=== PATIENT | male | born 1960 | race Native Hawaiian/Other Pacific Islander ===

== ENCOUNTER → 2018-02-14 | Outpatient (CLI) | payer BC ==
[2018-02-14 12:55] LABS: BASO # 0.1 10^3/uL (0.0-0.2); BASO % 1.2 % (0.0-1.0); EOS # 0.1 10^3/uL (0.0-0.50); HEMATOCRIT 42.7 % (42.0-52.0); HEMOGLOBIN 14.8 g/dl (13.5-17.5); LYMPH # 0.8 10^3/uL (1.5-4.5); LYMPH % 14.9 % (24.0-44.0); MEAN CORPUSCULAR HEMOGLOBIN 35.7 pg (27.0-33.0); MEAN CORPUSCULAR HGB CONC 34.7 g/dl (32.0-36.5); MEAN CORPUSCULAR VOLUME 102.9 fl (80.0-96.0); MONO # 0.6 10^3/uL (0.0-0.8); MONO % 10.9 % (0.0-5.0); NEUTROPHILS # 3.6 10^3/uL (1.8-7.7); NEUTROPHILS % 71.8 % (36.0-66.0); PLATELET COUNT, AUTOMATED 240 10^3/uL (150-450); RED BLOOD COUNT 4.15 10^6/uL (4.30-6.10)
[2018-02-14 13:21] LABS: ALT/SGPT 42 U/L (12-78); BILIRUBIN,TOTAL 0.4 MG/DL (0.2-1.0); BLOOD UREA NITROGEN 18 MG/DL (7-18); CALCIUM LEVEL 8.8 MG/DL (8.5-10.1); CARBON DIOXIDE LEVEL 24 MEQ/L (21-32); CHLORIDE LEVEL 107 MEQ/L (98-107); CREATININE FOR GFR 0.94 MG/DL (0.70-1.30); ERYTHROCYTE SEDIMENTATION RATE 19 mm/hr (0-20); GLOMERULAR FILTRATION RATE > 60.0 (>56); GLUCOSE, FASTING 106 MG/DL (70-100); IMMUNOGLOBULIN A 174 MG/DL (70-400); SODIUM LEVEL 140 MEQ/L (136-145)
[2018-02-14 13:28] LABS: VITAMIN B12 LEVEL 874 PG/ML (247-911)
[2018-02-19 00:06] LABS: ANTI-PARIETAL CELL ANTIBODY 36.3 Units (0.0-20.0); INTRINSIC FACTOR ANTIBODY 0.9 AU/mL (0.0-1.1); TISSUE TRANSGLUTAMINASE IgA <2 U/mL (0-3)
[2018-02-20 14:10] LABS: CALPROTECTIN STOOL <16 ug/g (0-120); FATS NEUTRAL Normal (.); FATS TOTAL Normal (.)
== END ==
LOC: M LAB 12:11
PROVIDERS: ATTEND Internal Medicine Gastroenterology
DX: K50.018 Crohn's disease of small intestine with other complication (principal)

== ENCOUNTER 2018-04-12 08:55 | Day surgery (SDC) | payer BC ==
[~2018-04-12] VITALS: Ht 180.3 cm; Wt 104.8 kg
[~2018-04-12 08:55] MED LIST: AZAT50TA2 PO; DICY20TA11 PO; DIFI200T PO; FISH7.5C PO; GEMF600T5 PO; IMIT50TA PO; INDO25CA; NS 1,000 ML IV ONE; PRAM0.126 PO; QUDE1CAP; SITA50TAB PO; VERA24TASA; VITA100067 PO; VITA100072 PO; VITA100T20 PO
[2018-04-12] MEDS ORDERED: KETOROLAC 30 MG/ML VIAL (J1885) As Ordered ONE (10:27)
[2018-04-12] MEDS ORDERED: KETOROLAC 30 MG/ML VIAL (J1885) IV ONE (10:30)
[2018-04-12] MEDS ORDERED: PROPOFOL 200 MG/20 ML VIAL As Ordered ONE ×2 (11:04→11:11)
[2018-04-12] MEDS ORDERED: LIDOCAINE 2% INJ 100 MG/5 ML SDV (FOR ANES.) As Ordered ONE (11:04)
--- NOTE | 2018-04-12 11:29 | ROOR ---
Patient Name: Kem Stockton Procedure Date: 04/12/2018 10:44 AM Date of : 1960 Age: 58 Room: [facility] Gender: Male Note Status: Finalized Procedure: Upper GI endoscopy Indications: Crohn's disease Providers: Jose MICHEL MD Referring MD: CORIN ROSALES MD Requesting Provider: Medicines: Monitored Anesthesia Care Complications: No immediate complications. Procedure: Pre-Anesthesia Assessment: - The heart rate, respiratory rate, oxygen saturations, blood pressure, adequacy of pulmonary ventilation, and response to care were monitored throughout the procedure. The Endoscope was introduced through the mouth, and advanced to the third part of duodenum. The upper GI endoscopy was accomplished without difficulty. The patient tolerated the procedure well. Findings: Non-severe esophagitis was found at the gastroesophageal junction. Biopsies were taken with a cold forceps for histology. Minimal inflammation was found at the pylorus. Biopsies were taken with a cold forceps for histology. Mild inflammation was found in the first portion of the duodenum. Biopsies were taken with a cold forceps for histology. The exam was otherwise without abnormality. Impression: - Mild reflux esophagitis and variable Z line. Rule out Ramirez's esophagus. Biopsied. - Minimal antral gastritis. Biopsied. - Mild first portion duodenitis. Biopsied. - The examination was otherwise normal. (- Findings above are nonspecific and quite minimal overall. Biopsies to r/o IBD) Recommendation: - Await pathology results. - Return to my office in 1 month. Jose Michel MD Jose MICHEL MD 04/12/2018 11:28:47 AM This report has been signed electronically. Number of Addenda: 0 Note Initiated On: 04/12/2018 10:44 AM Estimated Blood Loss: Estimated blood loss: none.
--- NOTE | 2018-04-12 11:37 | ROOR ---
Patient Name: Kem Stockton Procedure Date: 04/12/2018 10:45 AM Date of : 1960 Age: 58 Room: [facility] Gender: Male Note Status: Finalized Procedure: Colonoscopy Indications: Clinically significant diarrhea of unexplained origin, Suspected Crohn's disease Providers: Jose IBARRA MD Referring MD: CORIN ROSALES MD Requesting Provider: Medicines: Monitored Anesthesia Care Complications: No immediate complications. Procedure: Pre-Anesthesia Assessment: - The heart rate, respiratory rate, oxygen saturations, blood pressure, adequacy of pulmonary ventilation, and response to care were monitored throughout the procedure. The Colonoscope was introduced through the anus and advanced to 15 cm into the ileum. The colonoscopy was performed without difficulty. The patient tolerated the procedure well. The quality of the bowel preparation was fair. Findings: The perianal and digital rectal examinations were normal. Mild sigmoid diverticulosis and small internal hemorrhoids. The exam was otherwise normal throughout the examined colon. The terminal ileum appeared normal. Biopsies were taken with a cold forceps in the rectum, in the sigmoid colon, in the descending colon, in the transverse colon, in the ascending colon and in the terminal ileum for histology. Impression: - Preparation of the colon was fair. - Mild sigmoid diverticulosis and small internal hemorrhoids. - Perianal exam is normal. - The colon is otherwise normal. - The examined portion (15 cm) of the ileum was normal. - Biopsies were taken with a cold forceps for histology in the rectum, in the sigmoid colon, in the descending colon, in the transverse colon, in the ascending colon and in the terminal ileum. (- I see no evidence of any inflammation or other mucosal abnormality in the entire colon and 15 cm into terminal ileum). Recommendation: - Return to endoscopist in 1 month. Jose Ibarra MD Jose IBARRA MD 04/12/2018 11:36:56 AM This report has been signed electronically. Number of Addenda: 0 Note Initiated On: 04/12/2018 10:45 AM Estimated Blood Loss: Estimated blood loss: none.
[2018-04-12 11:52] VITALS: BP 153/87
== END 2018-04-12 12:03 | disposition home or self-care (01) ==
LOC: M OPP 08:55
PROVIDERS: ATTEND Internal Medicine Gastroenterology
DX: K50.90 Crohn's disease, unspecified, without complications (principal); K21.0 Gastro-esophageal reflux disease with esophagitis; K29.70 Gastritis, unspecified, without bleeding; K29.80 Duodenitis without bleeding; R19.7 Diarrhea, unspecified; G47.30 Sleep apnea, unspecified; L40.52 Psoriatic arthritis mutilans; E11.9 Type 2 diabetes mellitus without complications; Z79.899 Other long term (current) drug therapy; Z88.8 Allergy status to other drugs, medicaments and biological substances; Z80.0 Family history of malignant neoplasm of digestive organs; F17.228 Nicotine dependence, chewing tobacco, with other nicotine-induced disorders
CPT/HCPCS: 43239; 45380; 88305; J1885

== ENCOUNTER → 2018-06-20 | Outpatient (CLI) | payer BC ==
[~2018-06-20] MED LIST changes: -NS 1,000 ML IV ONE; +VITA100018 PO; -VITA100072 PO; -VITA100T20 PO; +VITA100T51 PO
== END ==
LOC: M LAB 14:47
PROVIDERS: ATTEND Internal Medicine Gastroenterology
DX: K57.33 Diverticulitis of large intestine without perforation or abscess with bleeding (principal)

== ENCOUNTER → 2018-07-17 | Outpatient (REF) | payer BC | LOC: M LAB REF 15:38 | PROVIDERS: ATTEND Internal Medicine Gastroenterology | DX: Z53.9 Procedure and treatment not carried out, unspecified reason (principal); K59.00 Constipation, unspecified ==

== ENCOUNTER → 2018-07-17 | Outpatient (CLI) | payer BC ==
[2018-07-17 14:56] LABS: BASO # 0.1 10^3/uL (0.0-0.2); BASO % 1.3 % (0.0-1.0); EOS # 0.1 10^3/uL (0.0-0.50); EOS % 1.3 % (0.0-3.0); LYMPH % 18.9 % (24.0-44.0); MEAN CORPUSCULAR HEMOGLOBIN 34.3 pg (27.0-33.0); MEAN CORPUSCULAR HGB CONC 34.1 g/dl (32.0-36.5); MEAN CORPUSCULAR VOLUME 100.5 fl (80.0-96.0); MONO # 0.8 10^3/uL (0.0-0.8); MONO % 15.2 % (0.0-5.0); NEUTROPHILS # 3.3 10^3/uL (1.8-7.7); NEUTROPHILS % 63.1 % (36.0-66.0); PLATELET COUNT, AUTOMATED 217 10^3/uL (150-450); RED BLOOD COUNT 4.08 10^6/uL (4.30-6.10); WHITE BLOOD COUNT 5.3 10^3/uL (4.0-10.0)
[2018-07-17 15:19] LABS: ALBUMIN 3.8 GM/DL (3.2-5.2); ALT/SGPT 42 U/L (12-78); BILIRUBIN,TOTAL 0.3 MG/DL (0.2-1.0); BLOOD UREA NITROGEN 19 MG/DL (7-18); CALCIUM LEVEL 8.4 MG/DL (8.5-10.1); CARBON DIOXIDE LEVEL 25 MEQ/L (21-32); CHLORIDE LEVEL 109 MEQ/L (98-107); CREATININE FOR GFR 0.92 MG/DL (0.70-1.30); FREE T4 0.74 NG/DL (0.76-1.46); GLOMERULAR FILTRATION RATE > 60.0 (>56); GLUCOSE, FASTING 74 MG/DL (70-100); POTASSIUM SERUM 3.9 MEQ/L (3.5-5.1); SODIUM LEVEL 142 MEQ/L (136-145); TOTAL PROTEIN 6.9 GM/DL (6.4-8.2)
[2018-07-17 15:22] LABS: VITAMIN B12 LEVEL 869 PG/ML (247-911)
== END ==
LOC: M LAB 14:07
PROVIDERS: ATTEND Internal Medicine Gastroenterology
DX: K50.818 Crohn's disease of both small and large intestine with other complication (principal); K56.41 Fecal impaction

== ENCOUNTER 2019-01-31 13:19 | Day surgery (SDC) | payer BC ==
[~2019-01-31] VITALS: Ht 182.9 cm; Wt 105.2 kg
[~2019-01-31 13:19] MED LIST changes: +FECAL MICROBIOTA PREPARATION 250 ML BTL (J3590) XX ONE; +GABA-1171 PO; +GALC120S SQ; +INDO-16; -INDO25CA; +LIDOCAINE 2% INJ 100 MG/5 ML SDV (FOR ANES.) As Ordered ONE; +NS 1,000 ML IV SCH; +PROPOFOL 200 MG/20 ML VIAL As Ordered ONE; -VERA24TASA; +VERA24TASA PO
--- NOTE | 2019-01-31 15:17 | ROOR ---
Patient Name: Kem Stockton Procedure Date: 01/31/2019 2:39 PM Date of : 1960 Age: 58 Room: [facility] Gender: Male Note Status: Finalized Procedure: Colonoscopy Indications: Fecal transplant for treatment of recurrent Clostridium difficile diarrhea. (Pt with previous history of inflammatory bowel disease). Providers: Jose IBARRA MD Referring MD: CORIN ROSALES MD Requesting Provider: Medicines: Monitored Anesthesia Care Complications: No immediate complications. Procedure: Pre-Anesthesia Assessment: - The heart rate, respiratory rate, oxygen saturations, blood pressure, adequacy of pulmonary ventilation, and response to care were monitored throughout the procedure. The Colonoscope was introduced through the anus and advanced to the terminal ileum, with identification of the appendiceal orifice and IC valve. The colonoscopy was performed without difficulty. The patient tolerated the procedure well. The quality of the bowel preparation was adequate. Findings: The perianal and digital rectal examinations were normal. A localized area of erythematous mucosa was found in the mid rectum. This was biopsied with a cold forceps for histology. The decision was made to proceed with fecal microbiota transplant (bacteriotherapy). Donor stool was supplied by [facility] (purchased frozen stool) as per protocol. Approximately 250 mL of the donor stool was instilled in the cecum. A detailed colonoscopic exam could not be performed upon scope withdrawal secondary to limited visibility from the instilled stool. This precludes the ability to screen for colon cancer, and the patient was made aware of this prior to the procedure. Impression: - Erythematous mucosa in the mid rectum. Biopsied. - Fecal Microbiota Transplant (Bacteriotherapy) performed in the cecum. Recommendation: - Return to my office in 6 months. - ( Or sooner, for significant symptoms) Jose Ibarra MD Jose IBARRA MD 01/31/2019 3:17:09 PM Electronically signed by Jose IBARRA MD Number of Addenda: 0 Note Initiated On: 01/31/2019 2:39 PM Estimated Blood Loss: Estimated blood loss: none.
[2019-01-31 15:20] VITALS: BP 113/76
== END 2019-01-31 15:35 | disposition home or self-care (01) ==
LOC: M OPP 13:19
PROVIDERS: ATTEND Internal Medicine Gastroenterology
DX: A04.71 Enterocolitis due to Clostridium difficile, recurrent (principal); K62.89 Other specified diseases of anus and rectum; E11.9 Type 2 diabetes mellitus without complications; E78.00 Pure hypercholesterolemia, unspecified; K50.90 Crohn's disease, unspecified, without complications; K62.5 Hemorrhage of anus and rectum; M51.9 Unspecified thoracic, thoracolumbar and lumbosacral intervertebral disc disorder; G47.30 Sleep apnea, unspecified; G43.909 Migraine, unspecified, not intractable, without status migrainosus; L40.50 Arthropathic psoriasis, unspecified; Z87.891 Personal history of nicotine dependence; Z88.8 Allergy status to other drugs, medicaments and biological substances; Z88.5 Allergy status to narcotic agent; Z79.899 Other long term (current) drug therapy; Z79.84 Long term (current) use of oral hypoglycemic drugs